=== PATIENT | female | born 2000 | race Caucasian/White ===

== ENCOUNTER 2024-11-27 09:17 | Emergency (ER) | payer BC, MEDICAID ==
[~2024-11-27] VITALS: Ht 175.3 cm; Wt 95.8 kg
[2024-11-27] MEDS ORDERED: ipratropium/albuterol 3ml nebule NEB STA (09:49)
[2024-11-27] MEDS ORDERED: normal saline 1000ml 1,000 ML IV ONE (09:55)
[2024-11-27 10:10] LABS: BASOPHILS % (AUTO) 0.3 % (0-1); EOSINOPHILS # (AUTO) 0.1 X10'3 (0-0.9); EOSINOPHILS % (AUTO) 1.6 % (0-6); HEMATOCRIT 48.9 % (35.0-45.0); HEMOGLOBIN 16.9 g/dl (12.0-16.0); LYMPHOCYTES % (AUTO) 12.5 % (21-51); MEAN CORPUSCULAR HEMOGLOBIN 31.9 PG (27.0-31.0); MEAN CORPUSCULAR HGB CONC 34.5 g/dL (33.0-36.5); MEAN CORPUSCULAR VOLUME 92.4 FL (78-98); MEAN PLATELET VOLUME 9.7 FL (7.4-10.4); MONOCYTES # (AUTO) 0.6 X10'3 (0-0.9); MONOCYTES % (AUTO) 7.3 % (2-12); NEUTROPHILS # (AUTO) 6.1 X10'3 (1.8-7.7); NEUTROPHILS % (AUTO) 78.3 % (42-75); PLATELET COUNT 224 X10'3 (140-440); RED BLOOD COUNT 5.29 X10'6 (4.20-5.60); RED CELL DISTRIBUTION WIDTH 13.2 % (11.5-14.5); WHITE BLOOD COUNT 7.8 X10'3 (4.5-11.0)
[2024-11-27 10:31] LABS: ALBUMIN 4.1 G/DL (3.4-5.0); ANION GAP 10 (8-16); BLOOD UREA NITROGEN 9 MG/DL (7-18); BUN/CREATININE RATIO 8.4 (10.0-20.0); CALCIUM 9.4 MG/DL (8.5-10.1); CHLORIDE 104 MMOL/L (99-107); CREATININE 1.07 MG/DL (0.40-0.90); GLUCOSE 97 MG/DL (70-104); POTASSIUM 4.1 MMOL/L (3.5-5.1); SODIUM 140 MMOL/L (135-145); TOTAL CARBON DIOXIDE 26.1 MMOL/L (24-32); eCRCL 85 ML/MIN; eGFR 64 ML/MIN
[2024-11-27] MEDS ORDERED: PROM25TA14 PO (12:48)
[2024-11-27] MEDS ORDERED: PRED20TA PO (12:48)
[2024-11-27] MEDS: ketorolac trometh 30MG/ML vial 30 MG/ML VIAL IM ONE (13:03)
[2024-11-27] MEDS: dexamethasone sod phosphate 10mg/ml inj IM STA (13:03)
[2024-11-27 13:06] VITALS: BP 151/89; TEMP 100.4
[2024-11-27] MEDS: ipratropium/albuterol 3ml nebule NEB STA (13:09)
[2024-11-27 13:10] VITALS: PULSE 83; RESP 18; O2SAT 96
[2024-11-27 13:19] VITALS: PULSE 96; RESP 18; O2SAT 100
== END 2024-11-27 14:02 | disposition home or self-care (01) ==
LOC: ER 09:18
DX: J22 Unspecified acute lower respiratory infection (principal); Z20.822 Contact with and (suspected) exposure to COVID-19
CPT/HCPCS: 36415; 71046; 80048; 85025; 87502; 87503; 87811; 94640; 96372; 99284; J1100; J1885; J7030; 94760